=== PATIENT | male | born 1970 | race African-American/Black ===

== ENCOUNTER 2023-11-09 06:47 | Inpatient (IN) | payer MEDICARE, OTHER ==
[~2023-11-09] VITALS: Ht 175.3 cm; Wt 107.5 kg
[2023-11-09 09:24] LABS: CALCIUM, SERUM 8.8 mg/dL (8.5-10.1); CREATININE 0.9 mg/dL (0.6-1.3); POTASSIUM 3.5 mmol/L (3.5-5.1)
[2023-11-09 09:24] LABS: APPEARANCE,URINE CLEAR (CLEAR); BILIRUBIN,URINE 1+ (NEGATIVE); BLOOD, URINE NEGATIVE Ery/uL (NEGATIVE); COLOR,URINE YELLOW (YELLOW); KETONES,URINE 3+ mg/dL (NEGATIVE); LEUKOCYTE ESTERASE ,URINE NEGATIVE (NEGATIVE); NITRITE, URINE NEGATIVE (NEGATIVE); PH,URINE 5.5 (5.0-8.0); PROTEIN,URINE TRACE mg/dl (NEGATIVE); UGLUCOSE NEGATIVE (NEGATIVE); UROBILINOGEN,URINE 0.2 EU/dL (0.2)
[2023-11-09 09:25] LABS: BASOPHILS % (AUTO) 0.4 % (0.0-2.0); EOSINOPHILS # (AUTO) 0.1 K/uL (0.0-0.7); EOSINOPHILS % (AUTO) 1.1 % (0.0-6.0); HEMATOCRIT 50 % (39-51); HEMOGLOBIN 16.3 g/dL (13.5-17.5); LYMPHOCYTES # (AUTO) 1.7 K/uL (0.8-4.8); LYMPHOCYTES % (AUTO) 21.6 % (20.0-44.0); MEAN CORPUSCULAR HEMOGLOBIN 29 PG (26.0-33.0); MEAN CORPUSCULAR HGB CONC 33 g/dl (31.0-36.0); MEAN CORPUSCULAR VOLUME 88 fL (80-96); MONOCYTES # (AUTO) 0.7 K/uL (0.1-1.30); MONOCYTES % (AUTO) 9.5 % (2.0-12.0); NEUTROPHILS # (AUTO) 5.2 K/uL (1.8-8.9); NEUTROPHILS % (AUTO) 67.4 % (43.0-81.0); PLATELET COUNT (AUTO) 179 K/uL (150-450); RED BLOOD CELL COUNT(AUTO) 5.66 MIL/uL (4.5-6.0); RED CELL DISTRIBUTION WIDTH 14.4 % (11.5-15.0); WHITE BLOOD COUNT (AUTO) 7.8 K/uL (4.3-11.0)
[2023-11-09 09:28] LABS: PROTHROMBIN TIME 10.6 SECS (9.2-11.1)
[2023-11-09 09:31] LABS: ALBUMIN 3.5 g/dL (3.4-5.0); BILIRUBIN,TOTAL 0.6 mg/dL (0.2-1.0); TOTAL PROTEIN, SERUM 7.2 g/dL (6.4-8.2)
[2023-11-09 09:41] LABS: ADD URINE CULTURE NO; BACTERIA,URINE None seen /HPF (None Seen); RBC,URINE 0-2 /HPF (0-2); SQUAMOUS EPITHELIAL CELL,UR 0-2 /HPF (None Seen); WBC,URINE NONE SEEN /HPF (0-3)
[2023-11-09] MEDS ORDERED: Magnesium 1 GM/2 ML VIAL ONE (10:20)
[2023-11-09] MEDS ORDERED: HYDROMORPHONE INJ 2 MG/ML DISP.SYRIN ONE (10:20)
[2023-11-09] MEDS ORDERED: MIDAZOLAM HCL 2 MG/2ML VIAL ONE (10:21)
[2023-11-09] MEDS ORDERED: FAMOTIDINE/PF INJ 20 MG/2 ML VIAL IV ONE (10:21)
[2023-11-09] MEDS ORDERED: KETAMINE HCL (500MG/5 ML) 100 MG/ML VIAL ONE (10:21)
[2023-11-09] MEDS ORDERED: ROCURONIUM BROMIDE 50 MG/5 ML ONE (10:21)
[2023-11-09] MEDS ORDERED: POLYMYXIN B SULFATE 1,000,000 UNITS ONE (10:29)
[2023-11-09] MEDS ORDERED: CEFAZOLIN 0 GM ONE (10:30)
[2023-11-09] MEDS ORDERED: dexaMETHasone SOD PHOSPHATE 4 MG/ML VIAL ONE (10:47)
[2023-11-09] MEDS ORDERED: LANOLIN/MIN OIL/PETROLAT,WHT 3.5 GM TUBE ONE (10:47)
[2023-11-09] MEDS ORDERED: BUPIVACAINE 0.5 % PF 150 MG/30 ML VIAL ONE (10:49)
[2023-11-09] MEDS ORDERED: LANOLIN/MIN OIL/PETROLAT,WHT 3.5 GM TUBE OP ONE (11:00)
[2023-11-09] MEDS ORDERED: LIDOCAINE 5% (PATCH) 1 EA PATCH TP ONE (12:00)
[2023-11-09] MEDS ORDERED: oxyCODONE/APAP (5/325 MG) 1 UDTAB TABLET PO PRN (13:30)
[2023-11-09 13:50] VITALS: BP 122/75; TEMP 97.5; O2SAT 95
[2023-11-09] MEDS ORDERED: AMLO-213 PO (14:23)
[2023-11-09] MEDS ORDERED: POTA10TA10 PO (14:23)
[2023-11-09] MEDS ORDERED: DENO60DI SQ (14:23)
[2023-11-09] MEDS ORDERED: VITA1TAB56 PO (14:23)
[2023-11-09] MEDS ORDERED: APIX5TAB PO (14:23)
[2023-11-09] MEDS ORDERED: HYDR-3980 PO (14:23)
[2023-11-09] MEDS ORDERED: BISA10SU11 RC (14:23)
[2023-11-09] MEDS ORDERED: DOCU-141 PO (14:23)
[2023-11-09] MEDS ORDERED: MULT-447 PO (14:23)
[2023-11-09] MEDS ORDERED: NA P133E RC (14:23)
[2023-11-09] MEDS ORDERED: ACET-868 PO (14:23)
[2023-11-09] MEDS ORDERED: MAGN400O6 PO (14:23)
[2023-11-09 16:00] VITALS: BP 124/82; TEMP 98.1; O2SAT 94
[2023-11-09] MEDS ORDERED: Z GUARD REMEDY 4 OZ OINT TP PRN (16:00)
[2023-11-09] MEDS ORDERED: ACETAMINOPHEN 325 MG TABLET PO PRN (16:00)
[2023-11-09] MEDS ORDERED: ONDANSETRON HCL/PF 4 MG/2 ML VIAL IVP PRN (16:00)
[2023-11-09] MEDS: ENOXAPARIN SODIUM 40 MG/0.4 ML DISP.SYRIN SQ SCH (17:11)
[2023-11-09 20:00] VITALS: BP_SYST 122; BP_DIAS 63; BP_DIAS 82; TEMP 97.7; O2SAT 96; O2SAT 98
[2023-11-10 07:12] LABS: HEMATOCRIT 45 % (39-51); LYMPHOCYTES # (AUTO) 0.7 K/uL (0.8-4.8); LYMPHOCYTES % (AUTO) 8.2 % (20.0-44.0); MEAN CORPUSCULAR HEMOGLOBIN 29 PG (26.0-33.0); MEAN CORPUSCULAR HGB CONC 33 g/dl (31.0-36.0); MEAN CORPUSCULAR VOLUME 88 fL (80-96); MONOCYTES # (AUTO) 0.4 K/uL (0.1-1.30); MONOCYTES % (AUTO) 4.6 % (2.0-12.0); NEUTROPHILS # (AUTO) 7.4 K/uL (1.8-8.9); NEUTROPHILS % (AUTO) 87.2 % (43.0-81.0); PLATELET COUNT (AUTO) 184 K/uL (150-450); RED BLOOD CELL COUNT(AUTO) 5.14 MIL/uL (4.5-6.0); RED CELL DISTRIBUTION WIDTH 13.9 % (11.5-15.0); WHITE BLOOD COUNT (AUTO) 8.5 K/uL (4.3-11.0)
[2023-11-10 07:30] VITALS: BP 112/82; TEMP 98.4; O2SAT 94
[2023-11-10] MEDS: PANTOPRAZOLE 40 MG TABLET.DR PO SCH (07:30)
[2023-11-10 08:12] LABS: CALCIUM, SERUM 8.7 mg/dL (8.5-10.1); CREATININE 0.9 mg/dL (0.6-1.3); PHOSPHORUS 1.3 mg/dL (2.5-4.9); POTASSIUM 4.1 mmol/L (3.5-5.1)
[2023-11-10] MEDS: HYDROMORPHONE 1 MG/1 ML DISP.SYRIN IV PRN (14:41)
[2023-11-10] MEDS ORDERED: K PHOS NEUTRAL 250 MG TABLET PO ONE (16:00)
[2023-11-10] MEDS: ENOXAPARIN SODIUM 40 MG/0.4 ML DISP.SYRIN SQ SCH (16:24)
[2023-11-10 16:28] VITALS: BP 108/83; TEMP 97.2; O2SAT 97
[2023-11-10 20:00] VITALS: BP 111/86; TEMP 98.2; O2SAT 100
[2023-11-11] MEDS: HYDROMORPHONE 1 MG/1 ML DISP.SYRIN IV PRN ×4 (03:41→21:33)
[2023-11-11 07:30] VITALS: BP 90/64; TEMP 98.6; O2SAT 94
[2023-11-11] MEDS: PANTOPRAZOLE 40 MG TABLET.DR PO SCH ×2 (07:30→09:04)
[2023-11-11] MEDS: CLOTRIMAZOLE/BETAMETASONE DIPROPIONATE 15 GM TUBE TP SCH ×2 (09:05→16:26)
[2023-11-11 16:03] VITALS: BP 110/82; TEMP 98.2; O2SAT 98
[2023-11-11] MEDS: ENOXAPARIN SODIUM 40 MG/0.4 ML DISP.SYRIN SQ SCH (16:21)
[2023-11-12] MEDS: HYDROMORPHONE 1 MG/1 ML DISP.SYRIN IV PRN ×4 (07:45→21:11)
[2023-11-12] MEDS: PANTOPRAZOLE 40 MG TABLET.DR PO SCH (07:47)
[2023-11-12 08:25] VITALS: BP 110/83; TEMP 98.5; O2SAT 96
[2023-11-12] MEDS: MUPIROCIN OINT 2% 22 GM TUBE NS SCH ×2 (09:00→16:50)
[2023-11-12] MEDS: CLOTRIMAZOLE/BETAMETASONE DIPROPIONATE 15 GM TUBE TP SCH ×2 (09:44→16:47)
[2023-11-12 15:53] VITALS: BP 112/74; TEMP 99.2; O2SAT 97
[2023-11-12] MEDS: ENOXAPARIN SODIUM 40 MG/0.4 ML DISP.SYRIN SQ SCH (16:49)
[2023-11-12 20:00] VITALS: BP 117/80; TEMP 98.7; O2SAT 98
[2023-11-13] MEDS: HYDROMORPHONE 1 MG/1 ML DISP.SYRIN IV PRN ×6 (00:40→22:43)
[2023-11-13 08:40] VITALS: BP 127/84; TEMP 98.2; O2SAT 98
[2023-11-13] MEDS: MUPIROCIN OINT 2% 22 GM TUBE NS SCH ×2 (09:25→18:28)
[2023-11-13] MEDS: CLOTRIMAZOLE/BETAMETASONE DIPROPIONATE 15 GM TUBE TP SCH ×2 (09:25→18:27)
[2023-11-13] MEDS: PANTOPRAZOLE 40 MG TABLET.DR PO SCH (09:25)
[2023-11-13 16:00] VITALS: BP 145/94; TEMP 99; O2SAT 96
[2023-11-13] MEDS: ENOXAPARIN SODIUM 40 MG/0.4 ML DISP.SYRIN SQ SCH (17:00)
[2023-11-13 20:00] VITALS: BP 127/94; TEMP 99; O2SAT 95
[2023-11-13] MEDS: MAGNESIUM HYDROXIDE 30 ML UDC PO PRN (23:59)
[2023-11-14] MEDS: HYDROMORPHONE 1 MG/1 ML DISP.SYRIN IV PRN ×7 (01:15→20:30)
[2023-11-14] MEDS: PANTOPRAZOLE 40 MG TABLET.DR PO SCH (07:49)
[2023-11-14 08:00] VITALS: BP 120/87; TEMP 98.4; O2SAT 93
[2023-11-14] MEDS: CLOTRIMAZOLE/BETAMETASONE DIPROPIONATE 15 GM TUBE TP SCH ×2 (09:08→16:32)
[2023-11-14] MEDS: MUPIROCIN OINT 2% 22 GM TUBE NS SCH ×2 (09:08→16:32)
[2023-11-14 13:47] LABS: BASOPHILS # (AUTO) 0.1 K/uL (0.0-0.2); BASOPHILS % (AUTO) 1.5 % (0.0-2.0); EOSINOPHILS # (AUTO) 0.1 K/uL (0.0-0.7); EOSINOPHILS % (AUTO) 1.3 % (0.0-6.0); HEMATOCRIT 45 % (39-51); HEMOGLOBIN 15.2 g/dL (13.5-17.5); LYMPHOCYTES # (AUTO) 1.9 K/uL (0.8-4.8); MEAN CORPUSCULAR HEMOGLOBIN 29 PG (26.0-33.0); MEAN CORPUSCULAR HGB CONC 33 g/dl (31.0-36.0); MEAN CORPUSCULAR VOLUME 88 fL (80-96); MONOCYTES # (AUTO) 0.2 K/uL (0.1-1.30); MONOCYTES % (AUTO) 2.4 % (2.0-12.0); NEUTROPHILS # (AUTO) 6.8 K/uL (1.8-8.9); NEUTROPHILS % (AUTO) 73.8 % (43.0-81.0); PLATELET COUNT (AUTO) 213 K/uL (150-450); RED BLOOD CELL COUNT(AUTO) 5.19 MIL/uL (4.5-6.0); RED CELL DISTRIBUTION WIDTH 14.1 % (11.5-15.0); WHITE BLOOD COUNT (AUTO) 9.2 K/uL (4.3-11.0)
[2023-11-14 14:03] LABS: ALBUMIN 2.9 g/dL (3.4-5.0); BILIRUBIN,TOTAL 0.5 mg/dL (0.2-1.0); CALCIUM, SERUM 8.6 mg/dL (8.5-10.1); CREATININE 0.8 mg/dL (0.6-1.3); POTASSIUM 3.7 mmol/L (3.5-5.1); TOTAL PROTEIN, SERUM 6.6 g/dL (6.4-8.2)
[2023-11-14] MEDS: ENOXAPARIN SODIUM 40 MG/0.4 ML DISP.SYRIN SQ SCH (16:30)
[2023-11-14 20:00] VITALS: BP 111/93; TEMP 98.4; O2SAT 97
[2023-11-14] MEDS: MAGNESIUM HYDROXIDE 30 ML UDC PO PRN (20:39)
[2023-11-15] MEDS: HYDROMORPHONE 1 MG/1 ML DISP.SYRIN IV PRN ×7 (00:05→21:59)
[2023-11-15] MEDS: PANTOPRAZOLE 40 MG TABLET.DR PO SCH (08:16)
[2023-11-15 08:21] VITALS: BP 112/75; TEMP 98.2; O2SAT 98
[2023-11-15] MEDS: ENSURE ENLIVE 237 ML LIQUID (VANILLA) PO SCH (08:58)
[2023-11-15] MEDS: CLOTRIMAZOLE/BETAMETASONE DIPROPIONATE 15 GM TUBE TP SCH ×2 (08:59→17:35)
[2023-11-15] MEDS: MUPIROCIN OINT 2% 22 GM TUBE NS SCH ×2 (09:00→17:00)
[2023-11-15 16:40] VITALS: BP 130/92; TEMP 98.2; O2SAT 100
[2023-11-15] MEDS: ENOXAPARIN SODIUM 40 MG/0.4 ML DISP.SYRIN SQ SCH (17:31)
[2023-11-15 20:00] VITALS: BP 116/94; TEMP 99; O2SAT 97
[2023-11-16] MEDS: HYDROMORPHONE 1 MG/1 ML DISP.SYRIN IV PRN ×5 (03:14→15:07)
[2023-11-16] MEDS: PANTOPRAZOLE 40 MG TABLET.DR PO SCH ×2 (07:30→07:34)
[2023-11-16] MEDS: ENSURE ENLIVE 237 ML LIQUID (VANILLA) PO SCH (07:43)
[2023-11-16 08:00] VITALS: BP 107/93; TEMP 99; O2SAT 96
[2023-11-16] MEDS: CLOTRIMAZOLE/BETAMETASONE DIPROPIONATE 15 GM TUBE TP SCH (09:39)
[2023-11-16] MEDS: MUPIROCIN OINT 2% 22 GM TUBE NS SCH (09:39)
[2023-11-16] MEDS ORDERED: CLOTRIMAZOLE/BETAMETASONE DIPROPIONATE 15 GM TUBE TP SCH (17:00)
== END 2023-11-16 16:20 | DRG 456 ==
LOC: DS 06:47 → EDBD 10:00 → EDSTATUS 10:00 → MED 14:02
PROVIDERS: ADMIT Nurse Practitioner Family; ATTEND Neurological Surgery
PROC: 0SG704Z Fusion of Right Sacroiliac Joint with Internal Fixation Device, Open Approach (ICD-10-PCS; principal; 2023-11-09)
PROC: BR1DYZZ Fluoroscopy of Sacroiliac Joints using Other Contrast (ICD-10-PCS; 2023-11-09)
DX: M53.3 Sacrococcygeal disorders, not elsewhere classified (principal); G82.50 Quadriplegia, unspecified; M41.56 Other secondary scoliosis, lumbar region; D68.69 Other thrombophilia; L10.9 Pemphigus, unspecified; G35 Multiple sclerosis; Z74.01 Bed confinement status; G89.29 Other chronic pain; L84 Corns and callosities; M51.36 Other intervertebral disc degeneration, lumbar region; S90.821A Blister (nonthermal), right foot, initial encounter; X58.XXXA Exposure to other specified factors, initial encounter; Y93.9 Activity, unspecified; Y92.129 Unspecified place in nursing home as the place of occurrence of the external cause
CPT/HCPCS: 36415; 71045-TC; 72220-TC; 80048-TC; 80053-TC; 80061-TC; 81001; 83735-TC; 84100-TC; 85025-TC; 85610-TC; 87081-TC; 97110-TC; 97530-TC; A6253; A6403; C1713; C1769; G0378; J0330; J0690; J1100; J1170; J1650; J2250; J2405; J2704; J3475; J3490; J7030

== ENCOUNTER 2023-12-06 13:28 | Inpatient (IN) | payer MEDICARE, OTHER ==
[~2023-12-06] VITALS: Ht 175.3 cm; Wt 108.9 kg
[~2023-12-06 13:28] MED LIST: ACET-868 PO; AMLO-213 PO; APIX5TAB PO; BISA10SU11 RC; DENO60DI SQ; DOCU-141 PO; HYDR-3980 PO; MAGN400O6 PO; MULT-447 PO; NA P133E RC; POTA10TA10 PO; VITA1TAB56 PO
[2023-12-06] MEDS ORDERED: Z GUARD REMEDY 4 OZ OINT TP PRN (15:30)
[2023-12-06] MEDS ORDERED: MORPHINE SULFATE INJ 2 MG/ML DISP.SYRIN IV PRN (15:30)
[2023-12-06] MEDS ORDERED: BISACODYL SUPP (10 MG) 10 MG/SUPP.RECT SUPP.RECT RC PRN (15:30)
[2023-12-06] MEDS ORDERED: ONDANSETRON HCL/PF 4 MG/2 ML VIAL IVP PRN (15:30)
[2023-12-06] MEDS ORDERED: MAG HYDROX/AL HYDROX/SIMETH 30 ML UDC PO PRN (15:30)
[2023-12-06] MEDS ORDERED: ACETAMINOPHEN 325 MG TABLET PO PRN (15:30)
[2023-12-06] MEDS ORDERED: ZOLPIDEM TARTRATE 5 MG TABLET PO PRN (15:30)
[2023-12-06 16:01] LABS: ALBUMIN 3.3 g/dL (3.4-5.0); BILIRUBIN,TOTAL 0.3 mg/dL (0.2-1.0); CALCIUM, SERUM 8.6 mg/dL (8.5-10.1); CREATININE 0.9 mg/dL (0.6-1.3); MAGNESIUM 1.6 mg/dL (1.8-2.4); PHOSPHORUS 2.9 mg/dL (2.5-4.9); POTASSIUM 3.3 mmol/L (3.5-5.1); TOTAL PROTEIN, SERUM 6.2 g/dL (6.4-8.2)
[2023-12-06 16:02] LABS: BASOPHILS # (AUTO) 0.1 K/uL (0.0-0.2); BASOPHILS % (AUTO) 0.9 % (0.0-2.0); EOSINOPHILS # (AUTO) 0.2 K/uL (0.0-0.7); EOSINOPHILS % (AUTO) 3.1 % (0.0-6.0); HEMATOCRIT 45 % (39-51); HEMOGLOBIN 15.2 g/dL (13.5-17.5); LYMPHOCYTES # (AUTO) 2.2 K/uL (0.8-4.8); LYMPHOCYTES % (AUTO) 31.9 % (20.0-44.0); MEAN CORPUSCULAR HEMOGLOBIN 30 PG (26.0-33.0); MEAN CORPUSCULAR HGB CONC 34 g/dl (31.0-36.0); MEAN CORPUSCULAR VOLUME 88 fL (80-96); MONOCYTES # (AUTO) 0.5 K/uL (0.1-1.30); MONOCYTES % (AUTO) 7.1 % (2.0-12.0); NEUTROPHILS # (AUTO) 3.9 K/uL (1.8-8.9); PLATELET COUNT (AUTO) 189 K/uL (150-450); RED BLOOD CELL COUNT(AUTO) 5.14 MIL/uL (4.5-6.0); RED CELL DISTRIBUTION WIDTH 14.7 % (11.5-15.0); WHITE BLOOD COUNT (AUTO) 6.8 K/uL (4.3-11.0)
[2023-12-06 16:07] LABS: INR 1.02 (0.91-1.10); PARTIAL THROMBOPLASTIN TIME 27.3 SEC (24.3-34.3); PROTHROMBIN TIME 10.8 SECS (9.2-11.1)
[2023-12-06] MEDS: DOCUSATE SODIUM 100 MG CAPSULE PO SCH (16:34)
[2023-12-06] MEDS: MORPHINE SULFATE INJ 4 MG/ML DISP.SYRIN IV PRN (17:07)
[2023-12-06] MEDS ORDERED: MAGN400O21 PO (19:19)
[2023-12-06] MEDS ORDERED: IPRA3AMP22 IH ×2 (19:19)
[2023-12-07 07:16] LABS: BASOPHILS # (AUTO) 0.1 K/uL (0.0-0.2); BASOPHILS % (AUTO) 0.8 % (0.0-2.0); EOSINOPHILS # (AUTO) 0.2 K/uL (0.0-0.7); EOSINOPHILS % (AUTO) 3.1 % (0.0-6.0); HEMATOCRIT 42 % (39-51); HEMOGLOBIN 14.3 g/dL (13.5-17.5); LYMPHOCYTES # (AUTO) 2.8 K/uL (0.8-4.8); MEAN CORPUSCULAR HEMOGLOBIN 30 PG (26.0-33.0); MEAN CORPUSCULAR HGB CONC 34 g/dl (31.0-36.0); MEAN CORPUSCULAR VOLUME 88 fL (80-96); MONOCYTES # (AUTO) 0.6 K/uL (0.1-1.30); MONOCYTES % (AUTO) 9.1 % (2.0-12.0); NEUTROPHILS # (AUTO) 3.3 K/uL (1.8-8.9); PLATELET COUNT (AUTO) 192 K/uL (150-450); RED BLOOD CELL COUNT(AUTO) 4.79 MIL/uL (4.5-6.0); RED CELL DISTRIBUTION WIDTH 14.6 % (11.5-15.0)
[2023-12-07 07:28] LABS: CALCIUM, SERUM 8.4 mg/dL (8.5-10.1); MAGNESIUM 1.9 mg/dL (1.8-2.4); PHOSPHORUS 3.4 mg/dL (2.5-4.9); POTASSIUM 3.7 mmol/L (3.5-5.1)
[2023-12-07] MEDS: PANTOPRAZOLE 40 MG VIAL IV SCH (09:00)
[2023-12-07] MEDS: VITAMIN B COMP W-C 1 TAB TABLET PO SCH (09:00)
[2023-12-07] MEDS: MULTIVIT W/MINERALS 1 TAB TABLET PO SCH (09:00)
[2023-12-07] MEDS: POTASSIUM CHLORIDE 10 MEQ TABLET.SA PO SCH (09:00)
[2023-12-07] MEDS: AMLODIPINE BESYLATE 10 MG TABLET PO SCH (09:00)
[2023-12-07] MEDS ORDERED: BUPIVACAINE 0.5 % PF 150 MG/30 ML VIAL ONE (09:19)
[2023-12-07] MEDS ORDERED: SEVOFLURANE 250 ML BOTTLE IH ONE (09:19)
[2023-12-07] MEDS ORDERED: CEFAZOLIN 1 GM ONE (09:19)
[2023-12-07] MEDS ORDERED: GELATIN SPONGE,ABSORBABLE 1 EA SPONGE TP ONE (09:19)
[2023-12-07] MEDS ORDERED: LIDOCAINE 1%-EPI 1:100,000 20 ML VIAL ONE (09:19)
[2023-12-07] MEDS ORDERED: HEMOSTATIC MATRIX 8 ML 1 EACH PAD MC ONE (09:19)
[2023-12-07] MEDS ORDERED: POLYMYXIN B SULFATE 500,000 UNITS ONE (09:19)
[2023-12-07] MEDS ORDERED: LIDOCAINE 5% (PATCH) 1 EA PATCH TP ONE (09:20)
[2023-12-07] MEDS ORDERED: GELATIN SPONGE,ABSORBABLE 1 SPONGE SPONGE TP ONE (09:20)
[2023-12-07] MEDS ORDERED: CELLULOSE,OXIDIZED 1 EACH EACH MC ONE (09:20)
[2023-12-07] MEDS ORDERED: THROMBIN (BOVINE) 5,000 UNITS VIAL TP ONE (09:20)
[2023-12-07] MEDS ORDERED: CELLULOSE,OXIDIZED 1 PKT EACH MC ONE (09:20)
[2023-12-07] MEDS ORDERED: FENTANYL PF 100MCG/2ML AMPUL ONE (09:45)
[2023-12-07] MEDS ORDERED: ROCURONIUM BROMIDE 50 MG/5 ML ONE (09:46)
[2023-12-07] MEDS ORDERED: KETAMINE HCL (500MG/10ML) 50 MG/ML VIAL ONE (09:46)
[2023-12-07] MEDS ORDERED: FAMOTIDINE/PF INJ 20 MG/2 ML VIAL IV ONE (09:46)
[2023-12-07] MEDS ORDERED: Magnesium 1 GM/2 ML VIAL ONE (09:46)
[2023-12-07] MEDS ORDERED: MIDAZOLAM HCL 2 MG/2ML VIAL ONE (09:46)
[2023-12-07] MEDS ORDERED: LIDOCAINE 2% JEL UROJET 10 ML MM ONE (10:08)
[2023-12-07] MEDS: HYDROMORPHONE 1 MG/1 ML DISP.SYRIN IV PRN ×2 (15:27→23:03)
[2023-12-07] MEDS ORDERED: METOCLOPRAMIDE HCL 10 MG/2 ML VIAL IV PRN (15:30)
[2023-12-07] MEDS ORDERED: ONDANSETRON HCL/PF 4 MG/2 ML VIAL IV PRN (15:30)
[2023-12-07 15:51] VITALS: BP 82/62; TEMP 98.2; O2SAT 96
[2023-12-07 20:00] VITALS: BP 99/68; TEMP 97.7; O2SAT 97
[2023-12-07] MEDS: ANCEF 1 GM/50 ML D5W IV SCH (20:48)
[2023-12-08 06:37] LABS: BASOPHILS % (AUTO) 0.2 % (0.0-2.0); EOSINOPHILS % (AUTO) 0.1 % (0.0-6.0); HEMATOCRIT 42 % (39-51); HEMOGLOBIN 14.1 g/dL (13.5-17.5); LYMPHOCYTES # (AUTO) 1.6 K/uL (0.8-4.8); LYMPHOCYTES % (AUTO) 18.4 % (20.0-44.0); MEAN CORPUSCULAR HEMOGLOBIN 30 PG (26.0-33.0); MEAN CORPUSCULAR HGB CONC 34 g/dl (31.0-36.0); MEAN CORPUSCULAR VOLUME 88 fL (80-96); MONOCYTES # (AUTO) 0.8 K/uL (0.1-1.30); MONOCYTES % (AUTO) 9.6 % (2.0-12.0); NEUTROPHILS # (AUTO) 6.3 K/uL (1.8-8.9); NEUTROPHILS % (AUTO) 71.7 % (43.0-81.0); PLATELET COUNT (AUTO) 194 K/uL (150-450); RED BLOOD CELL COUNT(AUTO) 4.73 MIL/uL (4.5-6.0); RED CELL DISTRIBUTION WIDTH 14.4 % (11.5-15.0); WHITE BLOOD COUNT (AUTO) 8.8 K/uL (4.3-11.0)
[2023-12-08 08:00] VITALS: BP 103/72; TEMP 98; O2SAT 99
[2023-12-08 08:02] LABS: CALCIUM, SERUM 8.6 mg/dL (8.5-10.1); POTASSIUM 3.8 mmol/L (3.5-5.1)
[2023-12-08 16:00] VITALS: BP 94/67; TEMP 97.6; O2SAT 98
[2023-12-08 20:51] VITALS: BP 100/62; TEMP 97.2; O2SAT 99
[2023-12-09] MEDS: PANTOPRAZOLE 40 MG TABLET.DR PO SCH (08:19)
[2023-12-09] MEDS: HYDROCODONE/APAP 5/325MG TABLET PO PRN (10:36)
[2023-12-09 10:39] VITALS: BP 97/58; TEMP 98.8; O2SAT 97
[2023-12-09] MEDS: CLOTRIMAZOLE/BETAMETASONE DIPROPIONATE 15 GM TUBE TP SCH (16:09)
[2023-12-09 16:14] VITALS: BP 120/87; TEMP 98.6; O2SAT 97
[2023-12-09] MEDS: MAGNESIUM HYDROXIDE 30 ML UDC PO PRN (18:39)
[2023-12-09 20:00] VITALS: BP 134/79; TEMP 97.9; O2SAT 97
[2023-12-10 07:00] VITALS: BP 111/60; TEMP 99.1; O2SAT 99
[2023-12-10] MEDS ORDERED: METHOCARBAMOL (500MG) 500 MG TABLET PO PRN (09:00)
[2023-12-10 16:00] VITALS: BP 131/56; TEMP 97.8; O2SAT 95
[2023-12-10 20:00] VITALS: BP 125/88; TEMP 99; O2SAT 95
[2023-12-11 08:00] VITALS: BP 128/82; TEMP 99.3; O2SAT 100
[2023-12-11 16:00] VITALS: BP 136/93; TEMP 99.6; O2SAT 96
[2023-12-11 20:00] VITALS: BP 147/82; TEMP 97.5; O2SAT 95
[2023-12-12 08:38] VITALS: BP 125/73
== END 2023-12-12 15:20 | DRG 459 ==
LOC: DS 13:28 → MED 13:30
PROVIDERS: ADMIT Nurse Practitioner Acute Care; ATTEND Nurse Practitioner Family
PROC: 0SG804Z Fusion of Left Sacroiliac Joint with Internal Fixation Device, Open Approach (ICD-10-PCS; principal; 2023-12-07)
DX: M53.3 Sacrococcygeal disorders, not elsewhere classified (principal); G82.50 Quadriplegia, unspecified; D68.69 Other thrombophilia; L10.9 Pemphigus, unspecified; G35 Multiple sclerosis; E66.9 Obesity, unspecified; G89.29 Other chronic pain; I48.91 Unspecified atrial fibrillation; Z74.01 Bed confinement status; Z86.711 Personal history of pulmonary embolism; Z98.1 Arthrodesis status; Z79.01 Long term (current) use of anticoagulants; I10 Essential (primary) hypertension; E66.01 Morbid (severe) obesity due to excess calories; Z68.35 Body mass index [BMI] 35.0-35.9, adult; S90.821A Blister (nonthermal), right foot, initial encounter; X58.XXXA Exposure to other specified factors, initial encounter; Y93.9 Activity, unspecified; Y92.129 Unspecified place in nursing home as the place of occurrence of the external cause; G47.30 Sleep apnea, unspecified
CPT/HCPCS: 36415; 71045-TC; 72202-TC; 80048-TC; 80053-TC; 82962-TC; 83735-TC; 84100-TC; 85025-TC; 85730-TC; 93307-TC; 97110-TC; 97530-TC; A4223; A6253; C1713; C1769; C9113; G0378; J0330; J0690; J1100; J1170; J2250; J2270; J2405; J2704; J2765; J3010; J3475; J3490; J7050; J7060; J7070

== ENCOUNTER 2024-01-10 07:04 | Inpatient (IN) | payer MEDICARE, OTHER ==
[~2024-01-10] VITALS: Ht 175.3 cm; Wt 106.1 kg
[~2024-01-10 07:04] MED LIST changes: +IPRA3AMP22 IH; +MAGN400O21 PO; -MAGN400O6 PO
[2024-01-10] MEDS ORDERED: ONDANSETRON HCL/PF 4 MG/2 ML VIAL IVP PRN (13:30)
[2024-01-10] MEDS ORDERED: Z GUARD REMEDY 4 OZ OINT TP PRN (13:30)
[2024-01-10] MEDS ORDERED: MAGNESIUM HYDROXIDE 30 ML UDC PO PRN (13:30)
[2024-01-10 13:35] VITALS: BP 115/95; TEMP 99.2; O2SAT 69
[2024-01-10] MEDS ORDERED: BISACODYL SUPP (10 MG) 10 MG/SUPP.RECT SUPP.RECT RC PRN (14:00)
[2024-01-10] MEDS ORDERED: NA PHOS,M-B/NA PHOS,DI-BA 1 EA ENEMA RC PRN (14:00)
[2024-01-10 14:59] LABS: BASOPHILS % (AUTO) 0.7 % (0.0-2.0); EOSINOPHILS # (AUTO) 0.2 K/uL (0.0-0.7); EOSINOPHILS % (AUTO) 2.3 % (0.0-6.0); HEMATOCRIT 44 % (39-51); HEMOGLOBIN 14.8 g/dL (13.5-17.5); LYMPHOCYTES # (AUTO) 2.1 K/uL (0.8-4.8); LYMPHOCYTES % (AUTO) 31.1 % (20.0-44.0); MEAN CORPUSCULAR HEMOGLOBIN 29 PG (26.0-33.0); MEAN CORPUSCULAR HGB CONC 34 g/dl (31.0-36.0); MEAN CORPUSCULAR VOLUME 87 fL (80-96); MONOCYTES # (AUTO) 0.5 K/uL (0.1-1.30); MONOCYTES % (AUTO) 8.1 % (2.0-12.0); NEUTROPHILS # (AUTO) 3.9 K/uL (1.8-8.9); NEUTROPHILS % (AUTO) 57.8 % (43.0-81.0); PLATELET COUNT (AUTO) 180 K/uL (150-450); RED BLOOD CELL COUNT(AUTO) 5.08 MIL/uL (4.5-6.0); RED CELL DISTRIBUTION WIDTH 14.8 % (11.5-15.0); WHITE BLOOD COUNT (AUTO) 6.7 K/uL (4.3-11.0)
[2024-01-10] MEDS: HYDROCODONE/APAP 10/325MG TABLET PO PRN (15:09)
[2024-01-10 15:12] LABS: INR 1.05 (0.91-1.10); PROTHROMBIN TIME 11.1 SECS (9.2-11.1)
[2024-01-10 15:35] LABS: ALBUMIN 3.1 g/dL (3.4-5.0); BILIRUBIN,TOTAL 0.4 mg/dL (0.2-1.0); CALCIUM, SERUM 8.6 mg/dL (8.5-10.1); CREATININE 0.8 mg/dL (0.6-1.3); MAGNESIUM 1.7 mg/dL (1.8-2.4); POTASSIUM 3.6 mmol/L (3.5-5.1); TOTAL PROTEIN, SERUM 6.4 g/dL (6.4-8.2)
[2024-01-10 16:00] VITALS: BP 128/86; TEMP 98.3; O2SAT 96
[2024-01-10] MEDS: DOCUSATE SODIUM 100 MG CAPSULE PO SCH (16:20)
[2024-01-10] MEDS: MAGNESIUM OXIDE 400 MG TABLET PO ONE (16:20)
[2024-01-10 20:00] VITALS: BP 137/96; TEMP 97.9; O2SAT 98
[2024-01-11] VITALS (9 sets, daily range): BP systolic 85–134; BP diastolic 56–101; TEMP 98.2–98.7; O2SAT 98–100
[2024-01-11 07:22] LABS: BASOPHILS % (AUTO) 0.7 % (0.0-2.0); EOSINOPHILS # (AUTO) 0.2 K/uL (0.0-0.7); HEMATOCRIT 43 % (39-51); HEMOGLOBIN 14.4 g/dL (13.5-17.5); LYMPHOCYTES # (AUTO) 2.2 K/uL (0.8-4.8); LYMPHOCYTES % (AUTO) 35.8 % (20.0-44.0); MEAN CORPUSCULAR HEMOGLOBIN 29 PG (26.0-33.0); MEAN CORPUSCULAR HGB CONC 33 g/dl (31.0-36.0); MEAN CORPUSCULAR VOLUME 88 fL (80-96); MONOCYTES # (AUTO) 0.5 K/uL (0.1-1.30); MONOCYTES % (AUTO) 7.3 % (2.0-12.0); NEUTROPHILS # (AUTO) 3.3 K/uL (1.8-8.9); NEUTROPHILS % (AUTO) 53.2 % (43.0-81.0); PLATELET COUNT (AUTO) 165 K/uL (150-450); RED BLOOD CELL COUNT(AUTO) 4.94 MIL/uL (4.5-6.0); RED CELL DISTRIBUTION WIDTH 14.7 % (11.5-15.0); WHITE BLOOD COUNT (AUTO) 6.2 K/uL (4.3-11.0)
[2024-01-11] MEDS: PANTOPRAZOLE 40 MG TABLET.DR PO SCH (07:30)
[2024-01-11] MEDS ORDERED: HEMOSTATIC MATRIX 8 ML 1 EACH PAD MC ONE (07:43)
[2024-01-11] MEDS ORDERED: GELATIN SPONGE,ABSORBABLE 1 EA SPONGE TP ONE ×2 (07:43→16:07)
[2024-01-11] MEDS ORDERED: POLYMYXIN B SULFATE 500,000 UNITS ONE (07:43)
[2024-01-11] MEDS ORDERED: LIDOCAINE 1%-EPI 1:100,000 20 ML VIAL ONE (07:44)
[2024-01-11] MEDS ORDERED: CEFAZOLIN 2 GM ONE (07:44)
[2024-01-11] MEDS ORDERED: CELLULOSE,OXIDIZED 1 EA PACK MC ONE (07:44)
[2024-01-11] MEDS ORDERED: CELLULOSE,OXIDIZED 1 EACH EACH MC ONE (07:45)
[2024-01-11] MEDS ORDERED: CELLULOSE,OXIDIZED 1 PKT EACH MC ONE (07:45)
[2024-01-11 07:57] LABS: CALCIUM, SERUM 8.7 mg/dL (8.5-10.1); CREATININE 0.9 mg/dL (0.6-1.3); MAGNESIUM 1.7 mg/dL (1.8-2.4); PHOSPHORUS 3.3 mg/dL (2.5-4.9); POTASSIUM 3.9 mmol/L (3.5-5.1)
[2024-01-11] MEDS ORDERED: PROPOFOL 200 ML ONE ×2 (08:46→12:06)
[2024-01-11] MEDS ORDERED: CEFAZOLIN ONE (08:47)
[2024-01-11] MEDS ORDERED: FAMOTIDINE/PF INJ 20 MG/2 ML VIAL IV ONE (08:47)
[2024-01-11] MEDS ORDERED: MIDAZOLAM HCL 2 MG/2ML VIAL ONE (08:47)
[2024-01-11] MEDS ORDERED: FENTANYL PF 250MCG/5ML AMPUL ONE ×2 (08:47→12:06)
[2024-01-11] MEDS ORDERED: ROCURONIUM BROMIDE 50 MG/5 ML ONE (08:48)
[2024-01-11] MEDS: MULTIVIT W/MINERALS 1 TAB TABLET PO SCH (09:00)
[2024-01-11] MEDS: AMLODIPINE BESYLATE 10 MG TABLET PO SCH (09:00)
[2024-01-11] MEDS: VITAMIN B COMP W-C 1 TAB TABLET PO SCH (09:00)
[2024-01-11] MEDS ORDERED: HEPARIN SODIUM, PORCINE 5000 UNITS/1 ML VIAL ONE (09:01)
[2024-01-11] MEDS ORDERED: THROMBIN (BOVINE) 5,000 UNITS VIAL TP ONE (09:20)
[2024-01-11] MEDS: Magnesium 1GM/D5W 100ML PREMIX 100 ML IV SCH (10:00)
[2024-01-11] MEDS ORDERED: TRANEXAMIC ACID 1,000 MG/10 ML VIAL ONE (10:32)
[2024-01-11] MEDS ORDERED: THROMBIN (BOVINE) 20,000 UNITS SPRAY KIT TP ONE ×2 (10:32→16:13)
[2024-01-11] MEDS ORDERED: BUPIVACAINE 0.5 % PF 150 MG/30 ML VIAL ONE (13:53)
[2024-01-11] MEDS ORDERED: ALBUMIN 5% 0 ML IV ONE (14:01)
[2024-01-11] MEDS ORDERED: ALBUMIN 5% 250 ML IV ONE ×3 (14:53→16:20)
[2024-01-11 17:17] LABS: BASOPHILS % (AUTO) 0.1 % (0.0-2.0); HEMATOCRIT 34 % (39-51); HEMOGLOBIN 11.1 g/dL (13.5-17.5); LYMPHOCYTES # (AUTO) 0.6 K/uL (0.8-4.8); LYMPHOCYTES % (AUTO) 4.3 % (20.0-44.0); MEAN CORPUSCULAR HEMOGLOBIN 29 PG (26.0-33.0); MEAN CORPUSCULAR HGB CONC 33 g/dl (31.0-36.0); MEAN CORPUSCULAR VOLUME 87 fL (80-96); MONOCYTES # (AUTO) 0.2 K/uL (0.1-1.30); MONOCYTES % (AUTO) 1.6 % (2.0-12.0); NEUTROPHILS # (AUTO) 12.2 K/uL (1.8-8.9); PLATELET COUNT (AUTO) 131 K/uL (150-450); RED BLOOD CELL COUNT(AUTO) 3.84 MIL/uL (4.5-6.0); RED CELL DISTRIBUTION WIDTH 14.7 % (11.5-15.0); WHITE BLOOD COUNT (AUTO) 12.9 K/uL (4.3-11.0)
[2024-01-11 17:25] LABS: CALCIUM, SERUM 7.2 mg/dL (8.5-10.1); CREATININE 0.9 mg/dL (0.6-1.3); POTASSIUM 4.2 mmol/L (3.5-5.1)
[2024-01-11 17:30] LABS: ABG BASE EXCESS -7.4 mmol/L; ABG OXYGEN SATURATION 99.4 % (92.0-98.5); ABG PCO2 32.7 mmHg (35.0-45.0); ABG PH 7.342 (7.350-7.450); ABG PO2 462.6 mmHg (75.0-100.0); ABG TOTAL HEMOGLOBIN 12.4 G/dL (13.5-18.0); AaDO2 188.9 mmHg; COHb 0.2 % (0.5-1.5); MetHb 0.5 % (0.0-1.5); O2Hb 98.7 % (94.0-97.0); SITE, ABG A-Line; VENT MODE, BG VENT SURGERY 96% FIO2
[2024-01-11 17:31] LABS: ALBUMIN 2.9 g/dL (3.4-5.0); BILIRUBIN,TOTAL 0.6 mg/dL (0.2-1.0)
[2024-01-11] MEDS ORDERED: HYDROMORPHONE 1 MG/1 ML DISP.SYRIN ONE (18:38)
[2024-01-11] MEDS ORDERED: METOCLOPRAMIDE HCL 10 MG/2 ML VIAL IV PRN (19:00)
[2024-01-11] MEDS: IV 1/2NS 1000 ML 1,000 ML IV PRN (20:23)
[2024-01-11] MEDS: PIPERACILLIN /TAZOBACTAM 3.375 G in IV D5W 50 ML IV SCH (20:49)
[2024-01-11] MEDS: VANCOMYCIN 1 GM in IV D5W 250 ML IV SCH (21:22)
[2024-01-11 21:33] LABS: HEMOGLOBIN 11.5 g/dL (13.5-17.5)
[2024-01-12] VITALS (26 sets, daily range): BP systolic 67–144; BP diastolic 41–139; TEMP 98.2–98.9; O2SAT 93–100
[2024-01-12] MEDS: HYDROMORPHONE 1 MG/1 ML DISP.SYRIN IV PRN ×2 (02:12→08:13)
[2024-01-12 04:32] LABS: BASOPHILS % (AUTO) 0.1 % (0.0-2.0); HEMATOCRIT 33 % (39-51); HEMOGLOBIN 11.5 g/dL (13.5-17.5); MEAN CORPUSCULAR HEMOGLOBIN 31 PG (26.0-33.0); MEAN CORPUSCULAR HGB CONC 35 g/dl (31.0-36.0); MEAN CORPUSCULAR VOLUME 88 fL (80-96); MONOCYTES # (AUTO) 0.7 K/uL (0.1-1.30); NEUTROPHILS # (AUTO) 8.1 K/uL (1.8-8.9); NEUTROPHILS % (AUTO) 82.9 % (43.0-81.0); PLATELET COUNT (AUTO) 140 K/uL (150-450); RED BLOOD CELL COUNT(AUTO) 3.72 MIL/uL (4.5-6.0); RED CELL DISTRIBUTION WIDTH 14.5 % (11.5-15.0); WHITE BLOOD COUNT (AUTO) 9.8 K/uL (4.3-11.0)
[2024-01-12 04:55] LABS: CALCIUM, SERUM 7.5 mg/dL (8.5-10.1); CREATININE 0.9 mg/dL (0.6-1.3); MAGNESIUM 2.1 mg/dL (1.8-2.4); PHOSPHORUS 2.8 mg/dL (2.5-4.9); POTASSIUM 4.4 mmol/L (3.5-5.1)
[2024-01-12] MEDS: HYDROMORPHONE INJ 2 MG/ML DISP.SYRIN IV PRN (05:58)
[2024-01-12] MEDS: IV NS 0.9% 250 ML IV PRN (10:31)
[2024-01-12] MEDS: IV NS 0.9% 500 ML IV ONE ×2 (17:37→21:37)
[2024-01-13] VITALS (30 sets, daily range): BP systolic 75–113; BP diastolic 44–86; TEMP 98.3–100.3; O2SAT 89–100
[2024-01-13 03:51] LABS: BASOPHILS % (AUTO) 0.3 % (0.0-2.0); EOSINOPHILS % (AUTO) 0.4 % (0.0-6.0); HEMATOCRIT 27 % (39-51); HEMOGLOBIN 9.3 g/dL (13.5-17.5); LYMPHOCYTES # (AUTO) 1.6 K/uL (0.8-4.8); LYMPHOCYTES % (AUTO) 15.8 % (20.0-44.0); MEAN CORPUSCULAR HEMOGLOBIN 30 PG (26.0-33.0); MEAN CORPUSCULAR HGB CONC 34 g/dl (31.0-36.0); MEAN CORPUSCULAR VOLUME 87 fL (80-96); MONOCYTES # (AUTO) 0.8 K/uL (0.1-1.30); MONOCYTES % (AUTO) 8.4 % (2.0-12.0); NEUTROPHILS # (AUTO) 7.6 K/uL (1.8-8.9); NEUTROPHILS % (AUTO) 75.1 % (43.0-81.0); PLATELET COUNT (AUTO) 111 K/uL (150-450); RED BLOOD CELL COUNT(AUTO) 3.14 MIL/uL (4.5-6.0); RED CELL DISTRIBUTION WIDTH 14.7 % (11.5-15.0); WHITE BLOOD COUNT (AUTO) 10.1 K/uL (4.3-11.0)
[2024-01-13 04:29] LABS: ALBUMIN 2.3 g/dL (3.4-5.0); BILIRUBIN,TOTAL 0.4 mg/dL (0.2-1.0); CALCIUM, SERUM 7.3 mg/dL (8.5-10.1); CREATININE 1.2 mg/dL (0.6-1.3); POTASSIUM 3.7 mmol/L (3.5-5.1); TOTAL PROTEIN, SERUM 4.7 g/dL (6.4-8.2)
[2024-01-13] MEDS: ACETAMINOPHEN 325 MG TABLET PO PRN (19:42)
[2024-01-14 00:18] VITALS: BP 109/77; TEMP 98.9; O2SAT 69; O2SAT 97
[2024-01-14 05:48] VITALS: BP 98/78; TEMP 98.8; O2SAT 98
[2024-01-14 07:00] LABS: BASOPHILS % (AUTO) 0.3 % (0.0-2.0); EOSINOPHILS # (AUTO) 0.1 K/uL (0.0-0.7); EOSINOPHILS % (AUTO) 0.7 % (0.0-6.0); HEMATOCRIT 24 % (39-51); HEMOGLOBIN 8.3 g/dL (13.5-17.5); LYMPHOCYTES # (AUTO) 1.6 K/uL (0.8-4.8); LYMPHOCYTES % (AUTO) 16.4 % (20.0-44.0); MEAN CORPUSCULAR HEMOGLOBIN 30 PG (26.0-33.0); MEAN CORPUSCULAR HGB CONC 34 g/dl (31.0-36.0); MEAN CORPUSCULAR VOLUME 88 fL (80-96); MONOCYTES % (AUTO) 10.8 % (2.0-12.0); NEUTROPHILS # (AUTO) 6.9 K/uL (1.8-8.9); NEUTROPHILS % (AUTO) 71.8 % (43.0-81.0); PLATELET COUNT (AUTO) 107 K/uL (150-450); RED BLOOD CELL COUNT(AUTO) 2.78 MIL/uL (4.5-6.0); RED CELL DISTRIBUTION WIDTH 14.5 % (11.5-15.0); WHITE BLOOD COUNT (AUTO) 9.6 K/uL (4.3-11.0)
[2024-01-14 07:26] LABS: ALBUMIN 2.1 g/dL (3.4-5.0); BILIRUBIN,TOTAL 0.4 mg/dL (0.2-1.0); CALCIUM, SERUM 7.9 mg/dL (8.5-10.1); CREATININE 1.1 mg/dL (0.6-1.3); POTASSIUM 3.5 mmol/L (3.5-5.1); TOTAL PROTEIN, SERUM 4.7 g/dL (6.4-8.2)
[2024-01-14 08:21] VITALS: BP 90/50; TEMP 99; O2SAT 94
[2024-01-14 16:05] VITALS: BP 108/75; TEMP 98; O2SAT 95
[2024-01-14 20:00] VITALS: BP 110/69; TEMP 100; O2SAT 98
[2024-01-15 06:29] LABS: BASOPHILS # (AUTO) 0.1 K/uL (0.0-0.2); BASOPHILS % (AUTO) 0.5 % (0.0-2.0); EOSINOPHILS # (AUTO) 0.1 K/uL (0.0-0.7); EOSINOPHILS % (AUTO) 0.9 % (0.0-6.0); HEMATOCRIT 27 % (39-51); HEMOGLOBIN 8.8 g/dL (13.5-17.5); LYMPHOCYTES # (AUTO) 1.9 K/uL (0.8-4.8); MEAN CORPUSCULAR HEMOGLOBIN 30 PG (26.0-33.0); MEAN CORPUSCULAR HGB CONC 33 g/dl (31.0-36.0); MEAN CORPUSCULAR VOLUME 91 fL (80-96); MONOCYTES # (AUTO) 1.2 K/uL (0.1-1.30); MONOCYTES % (AUTO) 9.7 % (2.0-12.0); NEUTROPHILS # (AUTO) 8.7 K/uL (1.8-8.9); NEUTROPHILS % (AUTO) 72.9 % (43.0-81.0); PLATELET COUNT (AUTO) 121 K/uL (150-450); RED BLOOD CELL COUNT(AUTO) 2.96 MIL/uL (4.5-6.0); RED CELL DISTRIBUTION WIDTH 14.6 % (11.5-15.0); WHITE BLOOD COUNT (AUTO) 11.9 K/uL (4.3-11.0)
[2024-01-15 06:53] LABS: ALBUMIN 2.1 g/dL (3.4-5.0); BILIRUBIN,TOTAL 0.6 mg/dL (0.2-1.0); CALCIUM, SERUM 8.1 mg/dL (8.5-10.1); CREATININE 0.9 mg/dL (0.6-1.3); POTASSIUM 3.8 mmol/L (3.5-5.1); TOTAL PROTEIN, SERUM 5.4 g/dL (6.4-8.2)
[2024-01-15 07:00] VITALS: BP 123/77; TEMP 99.5; O2SAT 97
[2024-01-15 16:08] VITALS: BP 98/53; TEMP 99; O2SAT 96
[2024-01-15 20:00] VITALS: BP 132/77; TEMP 99; O2SAT 96
[2024-01-16 06:46] LABS: BASOPHILS % (AUTO) 0.4 % (0.0-2.0); EOSINOPHILS # (AUTO) 0.2 K/uL (0.0-0.7); EOSINOPHILS % (AUTO) 1.6 % (0.0-6.0); HEMATOCRIT 26 % (39-51); HEMOGLOBIN 8.7 g/dL (13.5-17.5); LYMPHOCYTES # (AUTO) 1.4 K/uL (0.8-4.8); LYMPHOCYTES % (AUTO) 13.1 % (20.0-44.0); MEAN CORPUSCULAR HEMOGLOBIN 30 PG (26.0-33.0); MEAN CORPUSCULAR HGB CONC 34 g/dl (31.0-36.0); MEAN CORPUSCULAR VOLUME 87 fL (80-96); MONOCYTES % (AUTO) 9.3 % (2.0-12.0); NEUTROPHILS # (AUTO) 7.8 K/uL (1.8-8.9); NEUTROPHILS % (AUTO) 75.6 % (43.0-81.0); PLATELET COUNT (AUTO) 155 K/uL (150-450); RED BLOOD CELL COUNT(AUTO) 2.96 MIL/uL (4.5-6.0); RED CELL DISTRIBUTION WIDTH 14.1 % (11.5-15.0); WHITE BLOOD COUNT (AUTO) 10.3 K/uL (4.3-11.0)
[2024-01-16 07:00] VITALS: BP 95/55; TEMP 99.1; O2SAT 96
[2024-01-16 07:28] LABS: ALBUMIN 2.1 g/dL (3.4-5.0); BILIRUBIN,TOTAL 0.4 mg/dL (0.2-1.0); CALCIUM, SERUM 8.5 mg/dL (8.5-10.1); CREATININE 0.9 mg/dL (0.6-1.3); POTASSIUM 3.1 mmol/L (3.5-5.1); TOTAL PROTEIN, SERUM 5.7 g/dL (6.4-8.2)
[2024-01-16] MEDS: POTASSIUM CHLORIDE 20 MEQ TAB.PRT.SR PO SCH (12:08)
[2024-01-16 16:00] VITALS: BP 105/74; TEMP 99; O2SAT 96
[2024-01-16 20:00] VITALS: BP 105/76; TEMP 99; O2SAT 98
[2024-01-17 07:00] VITALS: BP_SYST 102; BP_SYST 137; BP_DIAS 62; BP_DIAS 85; TEMP 100.8; TEMP 99.7; O2SAT 96; O2SAT 97
[2024-01-17 07:47] LABS: CALCIUM, SERUM 8.5 mg/dL (8.5-10.1); CREATININE 0.8 mg/dL (0.6-1.3); POTASSIUM 3.2 mmol/L (3.5-5.1)
[2024-01-17] MEDS: POTASSIUM CHLORIDE 20 MEQ TAB.PRT.SR PO ONE (09:05)
[2024-01-17 12:00] VITALS: TEMP 100
[2024-01-17 20:00] VITALS: BP 128/81; TEMP 100.4; TEMP 99; O2SAT 97
[2024-01-17 20:48] LABS: APPEARANCE,URINE SLIGHTLY CLOUDY (CLEAR); BILIRUBIN,URINE NEGATIVE (NEGATIVE); BLOOD, URINE 3+ Ery/uL (NEGATIVE); COLOR,URINE YELLOW (YELLOW); KETONES,URINE NEGATIVE (NEGATIVE); LEUKOCYTE ESTERASE ,URINE NEGATIVE (NEGATIVE); NITRITE, URINE NEGATIVE (NEGATIVE); PH,URINE 7.5 (5.0-8.0); PROTEIN,URINE NEGATIVE (NEGATIVE); UGLUCOSE NEGATIVE (NEGATIVE); UROBILINOGEN,URINE 0.2 EU/dL (0.2)
[2024-01-17 20:56] LABS: URINE TOTAL PROTEIN 47.4 mg/dL (0-11.9)
[2024-01-17 21:28] LABS: RBC,URINE 51-80 /HPF (0-2); WBC,URINE 0-2 /HPF (0-3)
[2024-01-17 21:29] LABS: ADD URINE CULTURE NO; BACTERIA,URINE None seen /HPF (None Seen); SQUAMOUS EPITHELIAL CELL,UR 0-2 /HPF (None Seen)
[2024-01-17 22:30] LABS: EOSINOPHIL,URINE None Seen
[2024-01-18 08:00] VITALS: BP 108/80; TEMP 99; O2SAT 95
[2024-01-18 16:00] VITALS: BP 119/86; TEMP 99.3; O2SAT 95
[2024-01-18] MEDS: HYDROMORPHONE HCL 2 MG TABLET PO ONE (18:17)
[2024-01-18 20:00] VITALS: BP 104/72; TEMP 97.9; O2SAT 98
[2024-01-18] MEDS: HYDROCODONE/APAP 10/325MG TABLET PO PRN (21:04)
[2024-01-19] MEDS: HYDROMORPHONE HCL 2 MG TABLET PO PRN (00:04)
[2024-01-19 07:30] VITALS: BP 114/80; TEMP 99; O2SAT 96
[2024-01-19 16:00] VITALS: BP 112/75; TEMP 99.1; O2SAT 95
[2024-01-19 20:12] VITALS: BP 119/76; TEMP 98.4; O2SAT 96
[2024-01-20 08:02] VITALS: BP 110/78; TEMP 98.6; O2SAT 96
[2024-01-20 09:00] VITALS: BP 110/78
== END 2024-01-20 16:45 | DRG 453 ==
LOC: MEDSG1 11:51 → MED 12:10 → ICU 01-11 11:45 → MED 01-13 23:40
PROVIDERS: ADMIT Nurse Practitioner Family; ATTEND Nurse Practitioner Family
PROC: 0SG00AJ Fusion of Lumbar Vertebral Joint with Interbody Fusion Device, Posterior Approach, Anterior Column, Open Approach (ICD-10-PCS; principal; 2024-01-11)
PROC: 0SG1071 Fusion of 2 or more Lumbar Vertebral Joints with Autologous Tissue Substitute, Posterior Approach, Posterior Column, Open Approach (ICD-10-PCS; 2024-01-11)
PROC: 0SG30AJ Fusion of Lumbosacral Joint with Interbody Fusion Device, Posterior Approach, Anterior Column, Open Approach (ICD-10-PCS; 2024-01-11)
PROC: 01NB0ZZ Release Lumbar Nerve, Open Approach (ICD-10-PCS; 2024-01-11)
PROC: 01NR0ZZ Release Sacral Nerve, Open Approach (ICD-10-PCS; 2024-01-11)
PROC: 0SP004Z Removal of Internal Fixation Device from Lumbar Vertebral Joint, Open Approach (ICD-10-PCS; 2024-01-11)
PROC: 0SG3071 Fusion of Lumbosacral Joint with Autologous Tissue Substitute, Posterior Approach, Posterior Column, Open Approach (ICD-10-PCS; 2024-01-11)
PROC: 00QT0ZZ Repair Spinal Meninges, Open Approach (ICD-10-PCS; 2024-01-11)
PROC: 0SP304Z Removal of Internal Fixation Device from Lumbosacral Joint, Open Approach (ICD-10-PCS; 2024-01-11)
DX: M51.16 Intervertebral disc disorders with radiculopathy, lumbar region (principal); G82.50 Quadriplegia, unspecified; N17.9 Acute kidney failure, unspecified; E87.20 Acidosis, unspecified; G97.41 Accidental puncture or laceration of dura during a procedure; M41.56 Other secondary scoliosis, lumbar region; M47.26 Other spondylosis with radiculopathy, lumbar region; M48.061 Spinal stenosis, lumbar region without neurogenic claudication; G89.29 Other chronic pain; G35 Multiple sclerosis; D64.9 Anemia, unspecified; E87.6 Hypokalemia; I10 Essential (primary) hypertension; I48.91 Unspecified atrial fibrillation; Z86.711 Personal history of pulmonary embolism; Z99.3 Dependence on wheelchair; Z20.822 Contact with and (suspected) exposure to COVID-19; E66.9 Obesity, unspecified; Z68.34 Body mass index [BMI] 34.0-34.9, adult; M89.8X9 Other specified disorders of bone, unspecified site; Y83.8 Other surgical procedures as the cause of abnormal reaction of the patient, or of later complication, without mention of misadventure at the time of the procedure; Y79.8 Miscellaneous orthopedic devices associated with adverse incidents, not elsewhere classified; Y92.234 Operating room of hospital as the place of occurrence of the external cause
CPT/HCPCS: 36415; 36600; 71045-TC; 72100-TC; 72131-TC; 80048-TC; 80053-TC; 80202-TC; 81001; 82570-TC; 82803-TC; 83735-TC; 84100-TC; 84300-TC; 85025-TC; 85027-TC; 85730-TC; 86850-TC; 94799-TC; 97110-TC; 97112-TC; 97530-TC; A4223; C1713; C1751; C1831; G0378; J0690; J1100; J1170; J1644; J2250; J2405; J2543; J2704; J2765; J3010; J3370; J3475; J3490; J7030; J7040; J7050; J7060; P9045